=== PATIENT | female | born 1995 | race Hispanic/Latino ===

== ENCOUNTER 2023-06-20 10:16 | Emergency (ER) | payer BC ==
[~2023-06-20] VITALS: Ht 160 cm; Wt 68.0 kg
[2023-06-20 10:45] VITALS: BP 116/77; PULSE 124; RESP 16
[2023-06-20 11:50] LABS: INFLUENZA TYPE A Negative For Type A (NEGATIVE); RSV negative (NEGATIVE)
[2023-06-20 11:59] LABS: INFLUENZA TYPE B Positive For Type B (NEGATIVE)
[2023-06-20 12:00] LABS: RAPID GROUP A STREP negative (NEGATIVE)
[2023-06-20 12:44] LABS: SARS-CoV-2, RNA, NAAT NEGATIVE SARS CoV-2 (NEGATIVE)
[2023-06-20] MEDS ORDERED: OSEL75 PO (12:48)
[2023-06-20] MEDS ORDERED: OSELTAMIVIR PHOSPHATE 75 MG CAP PO ONE (13:00)
== END 2023-06-20 13:45 | disposition home or self-care (01) ==
LOC: EDH 10:16
DX: J10.1 Influenza due to other identified influenza virus with other respiratory manifestations (principal); B34.9 Viral infection, unspecified; Z20.822 Contact with and (suspected) exposure to COVID-19
CPT/HCPCS: 99283; 87635; 87880; 87807; 87804 ×2; C9803